=== PATIENT | female | born 1960 | race Caucasian/White ===

== ENCOUNTER 2016-12-24 14:28 | Inpatient (IN) | payer MEDICARE, OTHER ==
[~2016-12-24] VITALS: Ht 165.1 cm; Wt 88.5 kg
[~2016-12-24 14:28] MED LIST: ASPI325T8 PO; ATOR20TA58 PO; INSU100I17 SQ; INSU100I27 SQ; METF850T2 PO
[2016-12-24] MEDS ORDERED: IV NORMAL SALINE 1000ML BAG 1,000 ML IV ONE ×2 (15:30→17:45)
[2016-12-24] MEDS ORDERED: ACETAMINOPHEN 500 MG TABLET PO ONE (15:30)
--- NOTE | 2016-12-24 15:45 | PHYS DOC ---
Past Medical History Past Medical History: CVA, Diabetes-Type II, High Cholesterol, Hypertension Past Surgical History: Cholecystectomy Alcohol Use: None Drug Use: None Adult General Chief Complaint Chief Complaint: HEADACHE HPI HPI Patient is a 56 year old F who presents with with a headache that started when she woke up this morning. Patient states she went to bed last night feeling fine and woke up this morning with a headache. Patient states she just does not feel well. Patient had low-grade temp in the emergency room of 100.7 patient denies any chest pain or shortness of breath. Patient denies any nausea/vomiting /diarrhea. Patient denies any abdominal pain. Patient states she is not having history of headaches or migraines. Patient denies any vision changes. Pertinent exam findings: Cranial nerves II through XII are grossly intact without any focal neurological deficits, no meningeal signs, neck was soft with no rigidity Heart was tachycardia with no murmurs Lungs are clear to auscultation bilaterally without crackles wheeze or rales Abdomen soft nontender bowel sounds heard in all 4 quadrants ED course: Patient was seen and examined CBC, CMP, UA, lactic acid, chest x-ray, EKG, CT the head without contrast, 1 L normal saline, 1 g Tylenol were ordered 1724: Patient was updated on lab results and CT results and plan to admit for UTI with sepsis 1728: Paged Dr. Bernstein, Dr. Black is telesales consultant 1731: Discussed CC/HP/PMH with Dr. Black and recommends admit [] Pertinent results: 1501: EKG shows sinus tach rate of 116 no STEMI WBC 18 UA shows greater than 40 wbc's, positive bacteria, positive nitrates CT scan of the head is unremarkable MDM: After reviewing the chart, CC/HPI/PMH, physical exam, [lab results], [ radiological results], I believe the patient has an acute UTI with sepsis needing admission to the hospital for IV antibiotics and fluids. Review of Systems Review of Systems GEN: Denies fevers, chills, sweats HEENT: Denies blurred vision, sore throat CV: Denies chest pain RESP: Denies shortness of air, cough GI: Denies n/v/d NEURO: Headache MSK: Denies weakness, joint pain/swelling Current Medications Current Medications Current Medications Medications (Trade) Dose Ordered Sig/Antonino Start Time Stop Time Status Last Admin Dose Admin Acetaminophen (Tylenol) 1,000 mg 1X ONCE 12/24/16 15:30 12/24/16 15:31 DC 12/24/16 16:45 1,000 MG Sodium Chloride 1,000 ml @ 1,000 mls/hr 1X ONCE 12/24/16 15:30 12/24/16 16:29 DC 12/24/16 16:00 1,000 MLS/HR Allergies Allergies Allergies Coded Allergies Type Severity Reaction Last Updated Verified levofloxacin Adverse Reaction Intermediate vomiting 01/04/16 Yes Physical Exam Physical Exam GEN.: No apparent distress. Alert and oriented. HEENT: Head is normocephalic, atraumatic NECK: Supple. LUNGS: CTAB. HEART: Tachycardia without murmur, S1, S2 present. Peripheral pulses intact ABDOMEN: Soft, nontender. Positive bowel sounds. EXTREMITIES: Without any cyanosis. NEUROLOGIC: Normal speech, normal tone, cranial nerves II-12 are grossly intact without any focal neurological deficits, no meningeal signs PSYCHIATRIC: Normal affect, normal mood. SKIN: No ulcerations Current Patient Data Vital Signs Vital Signs Date Time Temp Pulse Resp B/P (MAP) Pulse Ox O2 Delivery O2 Flow Rate FiO2 12/24/16 17:04 103.2 103.2 12/24/16 14:35 121 16 169/82 (111) 95 Room Air Lab Values Laboratory Tests Test 12/24/16 15:21 12/24/16 15:50 12/24/16 16:49 Glucose (Fingerstick) 210 mg/dL (70-99) H White Blood Count 18.0 x10^3/uL (4.0-11.0) H Red Blood Count 4.54 x10^6/uL (3.50-5.40) Hemoglobin 13.5 g/dL (12.0-15.5) Hematocrit 40.0 % (36.0-47.0) Mean Corpuscular Volume 88 fL (79-100) Mean Corpuscular Hemoglobin 30 pg (25-35) Mean Corpuscular Hemoglobin Concent 34 g/dL (31-37) Red Cell Distribution Width 15.7 % (11.5-14.5) H Platelet Count 211 x10^3/uL (140-400) Neutrophils (%) (Auto) 87 % (31-73) H Lymphocytes (%) (Auto) 6 % (24-48) L Monocytes (%) (Auto) 7 % (0-9) Eosinophils (%) (Auto) 0 % (0-3) Basophils (%) (Auto) 0 % (0-3) Neutrophils # (Auto) 15.6 x10^3uL (1.8-7.7) H Lymphocytes # (Auto) 1.0 x10^3/uL (1.0-4.8) Monocytes # (Auto) 1.3 x10^3/uL (0.0-1.1) H Eosinophils # (Auto) 0.0 x10^3/uL (0.0-0.7) Basophils # (Auto) 0.1 x10^3/uL (0.0-0.2) Segmented Neutrophils % 88 % (35-66) H Lymphocytes % 6 % (24-48) L Monocytes % 6 % (0-10) Platelet Estimate Adequate (ADEQUATE) Sodium Level 137 mmol/L (136-145) Potassium Level 3.7 mmol/L (3.5-5.1) Chloride Level 101 mmol/L (98-107) Carbon Dioxide Level 27 mmol/L (21-32) Anion Gap 9 (6-14) Blood Urea Nitrogen 16 mg/dL (7-20) Creatinine 1.0 mg/dL (0.6-1.0) Estimated GFR (Cockcroft-Gault) 57.6 BUN/Creatinine Ratio 16 (6-20) Glucose Level 207 mg/dL (70-99) H Lactic Acid Level 1.7 mmol/L (0.4-2.0) Calcium Level 9.1 mg/dL (8.5-10.1) Total Bilirubin 0.7 mg/dL (0.2-1.0) Aspartate Amino Transferase (AST) 13 U/L (15-37) L Alanine Aminotransferase (ALT) 23 U/L (14-59) Alkaline Phosphatase 92 U/L (46-116) Total Protein 8.1 g/dL (6.4-8.2) Albumin 3.7 g/dL (3.4-5.0) Albumin/Globulin Ratio 0.8 (1.0-1.7) L Urine Collection Type Unknown Urine Color Yellow Urine Clarity Cloudy Urine pH 7.5 Urine Specific [place] 1.020 Urine Protein 100 mg/dL (NEG-TRACE) Urine Glucose (UA) Negative mg/dL (NEG) Urine Ketones (Stick) Negative mg/dL (NEG) Urine Blood Moderate (NEG) Urine Nitrite Positive (NEG) Urine Bilirubin Negative (NEG) Urine Urobilinogen Dipstick 1.0 mg/dL (0.2 mg/dL) Urine Leukocyte Esterase Large (NEG) Urine RBC 6-10 /HPF (0-2) Urine WBC >40 /HPF (0-4) Urine Squamous Epithelial Cells Occ /LPF Urine Bacteria Many /HPF (0-FEW) Laboratory Tests 12/24/16 15:50 Laboratory Tests 12/24/16 15:50 EKG EKG 1501: EKG shows sinus tach rate of 116 no STEMI[] Radiology/Procedures Radiology/Procedures CXR: IMPRESSION: No acute finding. Possible pulmonary nodule in the left upper lobe[] CT scan of the head NAD Course & Med Decision Making Course & Med Decision Making Pertinent Labs and Imaging studies reviewed. (See chart for details) [] Dragon Disclaimer Dragon Disclaimer This electronic medical record was generated, in whole or in part, using a voice recognition dictation system. Departure Departure Impression: Primary Impression: UTI (urinary tract infection) Additional Impression: Sepsis Disposition: ADMITTED INPATIENT Admitting Physician: Verónica Black Condition: STABLE Referrals: LUC CRONIN MD (PCP) Problem Qualifiers Primary Impression: UTI (urinary tract infection) Urinary tract infection type: acute cystitis Hematuria presence: without hematuria Qualified Codes: N30.00 - Acute cystitis without hematuria Additional Impression: Sepsis Sepsis type: sepsis due to unspecified organism Qualified Codes: A41.9 - Sepsis, unspecified organism CY FUENETS DO Dec 24, 2016 15:45
[2016-12-24 16:00] LABS: BASO # 0.1 x10^3/uL (0.0-0.2); BASO % 0 % (0-3); EOS % 0 % (0-3); HEMOGLOBIN 13.5 g/dL (12.0-15.5); LYMPH % 6 % (24-48); MEAN CORPUSCULAR HEMOGLOBIN 30 pg (25-35); MEAN CORPUSCULAR HGB CONC 34 g/dL (31-37); MEAN CORPUSCULAR VOLUME 88 fL (79-100); MONO % 7 % (0-9); NEUT % 87 % (31-73); PLATELET COUNT 211 x10^3/uL (140-400); RED BLOOD COUNT 4.54 x10^6/uL (3.50-5.40); RED CELL DISTRIBUTION WIDTH 15.7 % (11.5-14.5)
[2016-12-24 16:09] LABS: CALCIUM 9.1 mg/dL (8.5-10.1); GFR 57.6; POTASSIUM 3.7 mmol/L (3.5-5.1)
[2016-12-24 16:14] LABS: ALBUMIN 3.7 g/dL (3.4-5.0); ALBUMIN/GLOBULIN RATIO 0.8 (1.0-1.7); TOTAL BILIRUBIN 0.7 mg/dL (0.2-1.0); TOTAL PROTEIN 8.1 g/dL (6.4-8.2)
[2016-12-24 16:26] LABS: PLT ESTIMATE ADEQUATE (ADEQUATE)
--- NOTE | 2016-12-24 16:26 | RAD ---
Indication tachycardia. Arrhythmia. PA and lateral views of the chest were obtained. No prior imaging of the chest is available. The heart and pulmonary vessels appear normal. There is no gross congestive heart failure. Acute parenchymal infiltrate is not seen. There is a possible pulmonary nodule in the left upper lobe. This density may be related to the anterior aspect of the first rib. Comparison with old films or follow-up imaging is advised. There is no pleural fluid. There is no pneumothorax. IMPRESSION: No acute finding. Possible pulmonary nodule in the left upper lobe
[2016-12-24 17:04] LABS: BILIRUBIN,URINE NEGATIVE (NEG); GLUCOSE,URINE NEGATIVE (NEG); NITRITE,URINE POSITIVE (NEG); PH,URINE 7.5; PROTEIN,URINE 100 mg/dL (NEG-TRACE)
[2016-12-24 17:20] LABS: BACTERIA,URINE MANY /HPF (0-FEW); SQUAMOUS EPITHELIAL CELL,UR OCC /LPF; WBC,URINE >40 /HPF (0-4)
[2016-12-24] MEDS ORDERED: MORPHINE SULFATE 4 MG/ML DISP.SYRIN. IV PRN (17:45)
[2016-12-24] MEDS ORDERED: ONDANSETRON PF 4 MG/2 ML VIAL. IV PRN (17:45)
[2016-12-24] MEDS ORDERED: ACETAMINOPHEN 325 MG TABLET. PO PRN (17:45)
--- NOTE | 2016-12-24 17:47 | ACF ---
Admission Forms Criteria URINARY COMPLICATIONS Clinical Indications for Inpatient Care (Place 'X' for any and all applicable criteria): Ongoing inpatient care may be indicated for urinary complications with ANY ONE of the following: [X]I. Urinary tract infection requiring inpatient care as indicated by ANY ONE of the following(8)(19)(20): [ ]a) Severe symptoms (eg, high fever, severe pain) [ ]b) Vomiting or dehydration requiring ongoing inpatient care [X]c) IV antibiotic needs that cannot be managed at lower level of care [ ]d) Hemodynamic instability [ ]e) Obstruction of collecting system by stone or tumor [ ]II. Urinary retention requiring drainage or surgery (3)(4)(5)(17)(18) [ ]III. Renal failure (Use Renal Failure Criteria for further information.) [ ]IV. Oliguria(30) [ ]V. Post obstructive diuresis requiring close monitoring of urine output and intravenous compensation for excessive fluid losses(33) Extended stay beyond goal length of stay for primary condition may be needed until ALL of the following are present(3)(4)(5)(8): [ ]a) Renal function (creatinine) at baseline, or daily decreases in creatinine consistent with renal function return [ ]b) Voiding adequately or with urinary catheter or percutaneous suprapubic tube and management regimen in place that is performable at lower level of care. [ ]c) Urine output adequate [ ]d) Fever absent or resolving [ ]e) Infection absent or treatable at next level of care The original [employer] content created by [employer] has been revised. The portions of the content which have been revised are identified through the use of italic text or in bold, and [facility] has neither reviewed nor approved the modified material. All other unmodified content is copyright [employer] Please see references footnoted in the original [facility] edition 2016 Admission Criteria Met?: Yes DESTINY MATA Dec 24, 2016 17:47
--- NOTE | 2016-12-24 17:53 | RAD ---
CT of the head without contrast, 12/24/2016: HISTORY: Headache The ventricles are within normal limits in size. There is no shift of the midline structures. There is no evidence of acute intracranial hemorrhage or mass effect. There are small lucencies in the right basal ganglia compatible with old nuclear infarcts. There is also an unchanged deep white matter lucency in the left frontal region compatible with chronic ischemic change. IMPRESSION: 1. Chronic findings as described above. 2. No acute intracranial abnormality is detected. Electronically signed by: Doug Buitrago MD (12/24/2016 5:49 PM)
[2016-12-24] MEDS: IV NORMAL SALINE 1000ML BAG 1,000 ML IV SCH (19:37)
[2016-12-24] MEDS ORDERED: HYDR-2762 PO (20:05)
[2016-12-24 20:15] VITALS: BP 134/53
[2016-12-24] MEDS ORDERED: DEXTROSE 50% 25 GM / 50ML DISP.SYRIN. IV PRN (20:45)
[2016-12-24] MEDS: HYDROcodone/APAP 5/325MG 1 TAB TABLET PO PRN (21:33)
[2016-12-24] MEDS ORDERED: PNEUMOCOCCAL VAX SCREEN BY RX. MC ONE (23:15)
[2016-12-24 23:20] VITALS: BP 116/50
[2016-12-25] MEDS: IV NORMAL SALINE 1000ML BAG 1,000 ML IV SCH (01:56)
[2016-12-25 03:20] VITALS: BP 135/72
[2016-12-25 03:59] LABS: BASO # 0.1 x10^3/uL (0.0-0.2); BASO % 0 % (0-3); EOS % 0 % (0-3); HEMATOCRIT 35.2 % (36.0-47.0); HEMOGLOBIN 11.6 g/dL (12.0-15.5); LYMPH # 1.1 x10^3/uL (1.0-4.8); LYMPH % 6 % (24-48); MEAN CORPUSCULAR HEMOGLOBIN 29 pg (25-35); MEAN CORPUSCULAR HGB CONC 33 g/dL (31-37); MEAN CORPUSCULAR VOLUME 89 fL (79-100); MONO % 9 % (0-9); NEUT % 85 % (31-73); PLATELET COUNT 174 x10^3/uL (140-400); RED BLOOD COUNT 3.95 x10^6/uL (3.50-5.40); RED CELL DISTRIBUTION WIDTH 15.7 % (11.5-14.5); WHITE BLOOD COUNT 19.6 x10^3/uL (4.0-11.0)
[2016-12-25 04:49] LABS: CALCIUM 8.5 mg/dL (8.5-10.1); CREATININE 0.9 mg/dL (0.6-1.0); POTASSIUM 3.3 mmol/L (3.5-5.1)
[2016-12-25] MEDS: HYDROcodone/APAP 5/325MG 1 TAB TABLET PO PRN ×3 (06:10→20:02)
[2016-12-25 07:00] VITALS: BP 129/62
[2016-12-25] MEDS ORDERED: OMEP20TA8 PO (08:11)
[2016-12-25] MEDS ORDERED: LISI10TA2 PO (08:11)
[2016-12-25] MEDS ORDERED: LOVA20TA2 PO (08:11)
--- NOTE | 2016-12-25 08:21 | PDOC ---
PROGRESS NOTES Subjective Subjective Patient denies dysuria. Headache at admission seems better. Objective Objective Vital Signs Date Time Temp Pulse Resp B/P (MAP) Pulse Ox O2 Delivery O2 Flow Rate FiO2 12/25/16 07:51 95 Room Air 2.0 12/25/16 07:00 99.5 118 16 129/62 (84) 99.5 Intake and Output 12/25/16 07:00 Intake Total 1550 ml Output Total 300 ml Balance 1250 ml Intake Oral 500 ml IV Total 1050 ml Output Urine Total 300 ml Physical Exam Abdomen: Normal bowel sounds, Soft, No tenderness Heart: Regular rate Extremities: No edema General: Alert, Oriented X3, No acute distress Lungs: Other (BS mildly decreased throughout but otherwise CTA) Assessment Assessment Problems Medical Problems: (1) Sepsis Status: Acute (2) UTI (urinary tract infection) Status: Acute Plan Plan of Care 1. Sepsis with UTI - mild intermittent fever persists. Urine and blood cultures pending. Continue Rocephin daily. No other source of infection apparent at this time. Patient not dehydrated, no need for further IVF at this time. 2. DM2 - resume her usual insulins and Metformin, follow FSBG. 3. HTN - continue Lisinopril. 4. COPD with tobaccoism - CXR without infiltrate. Patient does not use inhalers regularly at home. Declines nicotine patch at this time. Smoking cessation advised. 5. chronic back pain - continue [place] as needed. Patient states she does not take this often at home. 6. hypokalemia - mild, replace po today. 7. hx CVA - patient denies residual deficits from this. Continue ASA daily. Comment Review of Relevant I have reviewed the following items carlos (where applicable) has been applied. Labs Laboratory Tests Test 12/24/16 15:21 12/24/16 15:50 12/24/16 16:49 12/24/16 21:21 Glucose (Fingerstick) 210 mg/dL (70-99) 210 mg/dL (70-99) White Blood Count 18.0 x10^3/uL (4.0-11.0) Red Blood Count 4.54 x10^6/uL (3.50-5.40) Hemoglobin 13.5 g/dL (12.0-15.5) Hematocrit 40.0 % (36.0-47.0) Mean Corpuscular Volume 88 fL (79-100) Mean Corpuscular Hemoglobin 30 pg (25-35) Mean Corpuscular Hemoglobin Concent 34 g/dL (31-37) Red Cell Distribution Width 15.7 % (11.5-14.5) Platelet Count 211 x10^3/uL (140-400) Neutrophils (%) (Auto) 87 % (31-73) Lymphocytes (%) (Auto) 6 % (24-48) Monocytes (%) (Auto) 7 % (0-9) Eosinophils (%) (Auto) 0 % (0-3) Basophils (%) (Auto) 0 % (0-3) Neutrophils # (Auto) 15.6 x10^3uL (1.8-7.7) Lymphocytes # (Auto) 1.0 x10^3/uL (1.0-4.8) Monocytes # (Auto) 1.3 x10^3/uL (0.0-1.1) Eosinophils # (Auto) 0.0 x10^3/uL (0.0-0.7) Basophils # (Auto) 0.1 x10^3/uL (0.0-0.2) Segmented Neutrophils % 88 % (35-66) Lymphocytes % 6 % (24-48) Monocytes % 6 % (0-10) Platelet Estimate Adequate (ADEQUATE) Sodium Level 137 mmol/L (136-145) Potassium Level 3.7 mmol/L (3.5-5.1) Chloride Level 101 mmol/L (98-107) Carbon Dioxide Level 27 mmol/L (21-32) Anion Gap 9 (6-14) Blood Urea Nitrogen 16 mg/dL (7-20) Creatinine 1.0 mg/dL (0.6-1.0) Estimated GFR (Cockcroft-Gault) 57.6 BUN/Creatinine Ratio 16 (6-20) Glucose Level 207 mg/dL (70-99) Lactic Acid Level 1.7 mmol/L (0.4-2.0) Calcium Level 9.1 mg/dL (8.5-10.1) Total Bilirubin 0.7 mg/dL (0.2-1.0) Aspartate Amino Transf (AST/SGOT) 13 U/L (15-37) Alanine Aminotransferase (ALT/SGPT) 23 U/L (14-59) Alkaline Phosphatase 92 U/L (46-116) Total Protein 8.1 g/dL (6.4-8.2) Albumin 3.7 g/dL (3.4-5.0) Albumin/Globulin Ratio 0.8 (1.0-1.7) Urine Collection Type Unknown Urine Color Yellow Urine Clarity Cloudy Urine pH 7.5 Urine Specific [place] 1.020 Urine Protein 100 mg/dL (NEG-TRACE) Urine Glucose (UA) Negative mg/dL (NEG) Urine Ketones (Stick) Negative mg/dL (NEG) Urine Blood Moderate (NEG) Urine Nitrite Positive (NEG) Urine Bilirubin Negative (NEG) Urine Urobilinogen Dipstick 1.0 mg/dL (0.2 mg/dL) Urine Leukocyte Esterase Large (NEG) Urine RBC 6-10 /HPF (0-2) Urine WBC >40 /HPF (0-4) Urine Squamous Epithelial Cells Occ /LPF Urine Bacteria Many /HPF (0-FEW) Test 12/25/16 02:55 12/25/16 07:02 White Blood Count 19.6 x10^3/uL (4.0-11.0) Red Blood Count 3.95 x10^6/uL (3.50-5.40) Hemoglobin 11.6 g/dL (12.0-15.5) Hematocrit 35.2 % (36.0-47.0) Mean Corpuscular Volume 89 fL (79-100) Mean Corpuscular Hemoglobin 29 pg (25-35) Mean Corpuscular Hemoglobin Concent 33 g/dL (31-37) Red Cell Distribution Width 15.7 % (11.5-14.5) Platelet Count 174 x10^3/uL (140-400) Neutrophils (%) (Auto) 85 % (31-73) Lymphocytes (%) (Auto) 6 % (24-48) Monocytes (%) (Auto) 9 % (0-9) Eosinophils (%) (Auto) 0 % (0-3) Basophils (%) (Auto) 0 % (0-3) Neutrophils # (Auto) 16.7 x10^3uL (1.8-7.7) Lymphocytes # (Auto) 1.1 x10^3/uL (1.0-4.8) Monocytes # (Auto) 1.7 x10^3/uL (0.0-1.1) Eosinophils # (Auto) 0.0 x10^3/uL (0.0-0.7) Basophils # (Auto) 0.1 x10^3/uL (0.0-0.2) Sodium Level 139 mmol/L (136-145) Potassium Level 3.3 mmol/L (3.5-5.1) Chloride Level 105 mmol/L (98-107) Carbon Dioxide Level 23 mmol/L (21-32) Anion Gap 11 (6-14) Blood Urea Nitrogen 12 mg/dL (7-20) Creatinine 0.9 mg/dL (0.6-1.0) Estimated GFR (Cockcroft-Gault) 65.0 Glucose Level 198 mg/dL (70-99) Calcium Level 8.5 mg/dL (8.5-10.1) Glucose (Fingerstick) 185 mg/dL (70-99) Laboratory Tests Test 12/24/16 15:21 12/24/16 15:50 12/24/16 16:49 12/24/16 21:21 Glucose (Fingerstick) 210 mg/dL (70-99) 210 mg/dL (70-99) White Blood Count 18.0 x10^3/uL (4.0-11.0) Red Blood Count 4.54 x10^6/uL (3.50-5.40) Hemoglobin 13.5 g/dL (12.0-15.5) Hematocrit 40.0 % (36.0-47.0) Mean Corpuscular Volume 88 fL (79-100) Mean Corpuscular Hemoglobin 30 pg (25-35) Mean Corpuscular Hemoglobin Concent 34 g/dL (31-37) Red Cell Distribution Width 15.7 % (11.5-14.5) Platelet Count 211 x10^3/uL (140-400) Neutrophils (%) (Auto) 87 % (31-73) Lymphocytes (%) (Auto) 6 % (24-48) Monocytes (%) (Auto) 7 % (0-9) Eosinophils (%) (Auto) 0 % (0-3) Basophils (%) (Auto) 0 % (0-3) Neutrophils # (Auto) 15.6 x10^3uL (1.8-7.7) Lymphocytes # (Auto) 1.0 x10^3/uL (1.0-4.8) Monocytes # (Auto) 1.3 x10^3/uL (0.0-1.1) Eosinophils # (Auto) 0.0 x10^3/uL (0.0-0.7) Basophils # (Auto) 0.1 x10^3/uL (0.0-0.2) Segmented Neutrophils % 88 % (35-66) Lymphocytes % 6 % (24-48) Monocytes % 6 % (0-10) Platelet Estimate Adequate (ADEQUATE) Sodium Level 137 mmol/L (136-145) Potassium Level 3.7 mmol/L (3.5-5.1) Chloride Level 101 mmol/L (98-107) Carbon Dioxide Level 27 mmol/L (21-32) Anion Gap 9 (6-14) Blood Urea Nitrogen 16 mg/dL (7-20) Creatinine 1.0 mg/dL (0.6-1.0) Estimated GFR (Cockcroft-Gault) 57.6 BUN/Creatinine Ratio 16 (6-20) Glucose Level 207 mg/dL (70-99) Lactic Acid Level 1.7 mmol/L (0.4-2.0) Calcium Level 9.1 mg/dL (8.5-10.1) Total Bilirubin 0.7 mg/dL (0.2-1.0) Aspartate Amino Transf (AST/SGOT) 13 U/L (15-37) Alanine Aminotransferase (ALT/SGPT) 23 U/L (14-59) Alkaline Phosphatase 92 U/L (46-116) Total Protein 8.1 g/dL (6.4-8.2) Albumin 3.7 g/dL (3.4-5.0) Albumin/Globulin Ratio 0.8 (1.0-1.7) Urine Collection Type Unknown Urine Color Yellow Urine Clarity Cloudy Urine pH 7.5 Urine Specific [place] 1.020 Urine Protein 100 mg/dL (NEG-TRACE) Urine Glucose (UA) Negative mg/dL (NEG) Urine Ketones (Stick) Negative mg/dL (NEG) Urine Blood Moderate (NEG) Urine Nitrite Positive (NEG) Urine Bilirubin Negative (NEG) Urine Urobilinogen Dipstick 1.0 mg/dL (0.2 mg/dL) Urine Leukocyte Esterase Large (NEG) Urine RBC 6-10 /HPF (0-2) Urine WBC >40 /HPF (0-4) Urine Squamous Epithelial Cells Occ /LPF Urine Bacteria Many /HPF (0-FEW) Test 12/25/16 02:55 12/25/16 07:02 White Blood Count 19.6 x10^3/uL (4.0-11.0) Red Blood Count 3.95 x10^6/uL (3.50-5.40) Hemoglobin 11.6 g/dL (12.0-15.5) Hematocrit 35.2 % (36.0-47.0) Mean Corpuscular Volume 89 fL (79-100) Mean Corpuscular Hemoglobin 29 pg (25-35) Mean Corpuscular Hemoglobin Concent 33 g/dL (31-37) Red Cell Distribution Width 15.7 % (11.5-14.5) Platelet Count 174 x10^3/uL (140-400) Neutrophils (%) (Auto) 85 % (31-73) Lymphocytes (%) (Auto) 6 % (24-48) Monocytes (%) (Auto) 9 % (0-9) Eosinophils (%) (Auto) 0 % (0-3) Basophils (%) (Auto) 0 % (0-3) Neutrophils # (Auto) 16.7 x10^3uL (1.8-7.7) Lymphocytes # (Auto) 1.1 x10^3/uL (1.0-4.8) Monocytes # (Auto) 1.7 x10^3/uL (0.0-1.1) Eosinophils # (Auto) 0.0 x10^3/uL (0.0-0.7) Basophils # (Auto) 0.1 x10^3/uL (0.0-0.2) Sodium Level 139 mmol/L (136-145) Potassium Level 3.3 mmol/L (3.5-5.1) Chloride Level 105 mmol/L (98-107) Carbon Dioxide Level 23 mmol/L (21-32) Anion Gap 11 (6-14) Blood Urea Nitrogen 12 mg/dL (7-20) Creatinine 0.9 mg/dL (0.6-1.0) Estimated GFR (Cockcroft-Gault) 65.0 Glucose Level 198 mg/dL (70-99) Calcium Level 8.5 mg/dL (8.5-10.1) Glucose (Fingerstick) 185 mg/dL (70-99) Medications Current Medications Acetaminophen (Tylenol) 1,000 mg 1X ONCE PO Last administered on 12/24/16 16: 45; Start 12/24/16 at 15:30; Stop 12/24/16 at 15:31; Status DC Sodium Chloride 1,000 ml @ 1,000 mls/hr 1X ONCE IV Last administered on 16:00; Start 12/24/16 at 15:30; Stop 12/24/16 at 16:29; Status DC Ceftriaxone Sodium 50 ml @ 100 mls/hr 1X ONCE IV Last administered on 18:04; Start 12/24/16 at 18:00; Stop 12/24/16 at 18:29; Status DC Sodium Chloride 1,000 ml @ 1,000 mls/hr 1X ONCE IV Last administered on 18:04; Start 12/24/16 at 17:45; Stop 12/24/16 at 18:44; Status DC Ondansetron HCl (Zofran) 4 mg PRN Q8HRS PRN IV NAUSEA/VOMITING; Start 12/24/16 at 17:45; Stop 12/25/16 at 17:44 Morphine Sulfate 4 mg PRN Q2HR PRN IV PAIN; Start 12/24/16 at 17:45; Stop 12/25 at 08:15; Status DC Sodium Chloride 1,000 ml @ 125 mls/hr Q8H IV Last administered on 12/25/16 01 :56; Start 12/24/16 at 17:35; Stop 12/25/16 at 08:15; Status DC Acetaminophen (Tylenol) 650 mg PRN Q4HRS PRN PO FEVER; Start 12/24/16 at 17:45 ; Stop 12/25/16 at 17:44 Acetaminophen/ Hydrocodone Bitart (Lortab 5/325) 1 tab PRN Q6HRS PRN PO PAIN Last administered on 12/25/16 06:10; Start 12/24/16 at 20:45 Insulin Aspart (NovoLOG) 0-5 UNITS TIDWMEALS SQ ; Start 12/25/16 at 08:00 Dextrose (Dextrose 50%-Water Syringe) 12.5 gm PRN Q15MIN PRN IV SEE COMMENTS; Start 12/24/16 at 20:45 Pneumococcal Polyvalent Vaccine (Do NOT chart on this placeholder) 1 each 1X ONCE MC ; Start 12/24/16 at 23:15; Stop 12/24/16 at 23:16; Status UNV Pneumococcal Polyvalent Vaccine (Pneumovax 23) 0.5 ml ONCE ONCE VAX IM ; Start 12/25/16 at 09:00; Stop 12/25/16 at 09:01 Aspirin (Dexter Aspirin) 325 mg DAILYWBKFT PO ; Start 12/25/16 at 09:00 Insulin Aspart (NovoLOG) 12 units TIDAC SQ ; Start 12/25/16 at 09:00 Insulin Detemir (Levemir) 40 units QHS SQ ; Start 12/25/16 at 21:00 Lisinopril (Prinivil) 10 mg DAILY PO ; Start 12/25/16 at 09:00 Non-Formulary Medication 1 tab DAILY PO ; Start 12/25/16 at 09:00; Status UNV Pantoprazole Sodium (Protonix) 40 mg DAILYAC PO ; Start 12/25/16 at 09:00 Potassium Chloride (Klor-Con) 20 meq 1X ONCE PO ; Start 12/25/16 at 08:15; Stop 12/25/16 at 08:16; Status UNV Active Scripts Active Omeprazole 20 Mg Tablet.dr 1 Tab PO DAILY Lisinopril 10 Mg Tablet 1 Tab PO DAILY Lovastatin 20 Mg Tablet 1 Tab PO DAILY Novolog Flexpen (Insulin Aspart) 100 Unit/1 Ml Insuln.pen 12 Units SQ TIDAC 30 Days Aspirin 325 Mg Tablet 325 Mg PO DAILYWBKFT Metformin Hcl 850 Mg Tablet 1 Tab PO BID Levemir Flextouch (Insulin Detemir) 100 Unit/1 Ml Insuln.pen 40 Units SQ QHS 30 Days Reported Hydrocodone-Apap 7.5-325 (Hydrocodone Bit/Acetaminophen) 1 Each Tablet 1 Tab PO PRN Q6HRS PRN Vitals/I & O Vital Sign - Last 24 Hours 12/24/16 12/24/16 12/24/16 12/24/16 14:35 15:30 17:04 18:00 Temp 100.7 103.2 100.7 103.2 Pulse 121 120 114 Resp 16 B/P (MAP) 169/82 (111) 153/73 (99) 126/62 (83) Pulse Ox 95 92 95 O2 Delivery Room Air Nasal Cannula Nasal Cannula O2 Flow Rate 2.0 2.0 12/24/16 12/24/16 12/24/16 12/24/16 18:48 20:00 20:15 23:20 Temp 100.6 99.2 100.7 100.6 99.2 100.7 Pulse 103 113 Resp 16 16 B/P (MAP) 134/53 (80) 116/50 (72) Pulse Ox 98 94 O2 Delivery Room Air Room Air Room Air 12/25/16 12/25/16 12/25/16 03:20 07:00 07:51 Temp 101.4 99.5 101.4 99.5 Pulse 127 118 Resp 18 16 B/P (MAP) 135/72 (93) 129/62 (84) Pulse Ox 95 93 95 O2 Delivery Nasal Cannula Nasal Cannula Room Air O2 Flow Rate 2.0 2.0 2.0 Intake and Output 12/24/16 12/24/16 12/25/16 15:00 23:00 07:00 Intake Total 1050 ml 500 ml Output Total 300 ml Balance 1050 ml 200 ml JUDY ARAYA MD Dec 25, 2016 08:21
[2016-12-25] MEDS: LISINOPRIL 10 MG TABLET PO SCH (08:50)
[2016-12-25] MEDS: PANTOPRAZOLE 40 MG TABLET.DR. PO SCH (08:50)
[2016-12-25] MEDS: ASPIRIN 325 MG TABLET PO SCH (08:50)
[2016-12-25] MEDS ORDERED: POTASSIUM CHLORIDE 20 MEQ TABLET.ER. PO ONE (09:00)
[2016-12-25] MEDS: INSULIN ASPART 300 UNITS/3 ML INSULN.PEN SQ SCH ×6 (09:00→17:00)
[2016-12-25] MEDS ORDERED: PNEUMOC CONJ VACC 23-VALENT 0.5 ML VIAL. VAX IM ONE (09:00)
--- NOTE | 2016-12-25 09:37 | HP ---
ADMIT DATE: CHIEF COMPLAINT: Headache and malaise. HISTORY OF PRESENT ILLNESS: The patient is a 56-year-old insulin-dependent diabetic, who presented to the Emergency Room with the above complaint. She reported the onset of a headache earlier on the day of admission. She felt discomfort all across her forehead and in the back of her neck. She also had some malaise and just did not feel right. In the Emergency Room she was found to be febrile and mildly tachycardic. Urine specimen showed greater than 40 wbc's and the patient was admitted for further treatment. PAST MEDICAL HISTORY: Diabetes mellitus type 2, insulin-dependent; hypertension; COPD with ongoing tobaccoism; chronic back pain; history of CVA and hyperlipidemia. PAST SURGICAL HISTORY: Cholecystectomy. ALLERGIES: THE PATIENT IS ALLERGIC TO LEVOFLOXACIN. HOME MEDICATIONS: Aspirin 325 mg daily, Levemir 40 units at bedtime, NovoLog 12 units with meals. The patient reports she has not taken either of her insulins for over a month as she did not have test strips and her insurance would not pay for the brand that she was presently using. Lisinopril 10 mg daily, lovastatin 20 mg daily, metformin 850 mg b.i.d. and Prilosec 20 mg daily. FAMILY HISTORY: Noncontributory. SOCIAL HISTORY: The patient is . She is disabled. She continues to smoke cigarettes daily. REVIEW OF SYSTEMS: The patient was not aware that she had a fever. She has not had chills. She has a chronic cough, which is productive of clear or white sputum in the morning and this has not changed recently. She denies worsening cough. She denies wheezing or shortness of air. She had been prescribed a Breo inhaler when she saw Dr. Bernstein in the office last year, but reports she has only been using as intermittently and does not take any other inhalers regularly. The patient denies chest pain or palpitations. She denies abdominal pain, nausea or vomiting. She has some chronic back pain, which has been stable with hydrocodone. She reports she does not take this very often at home. She denies any residual deficits from 2 previous strokes that she has had. PHYSICAL EXAMINATION: GENERAL: The patient is alert and oriented x 3, resting comfortably in bed, in no acute distress. HEENT: PERRL, EOMI, sclerae clear. Oropharynx: Mucous membranes moist. NECK: Supple, without lymphadenopathy. CHEST: Breath sounds mildly decreased throughout, but otherwise clear to auscultation. CARDIOVASCULAR: Regular rhythm without murmur. ABDOMEN: Soft, nontender, normoactive bowel sounds are present. EXTREMITIES: Without edema. ASSESSMENT AND PLAN: 1. Sepsis with urinary tract infection. The patient has been started on Rocephin. Blood and urine cultures are pending. She received IV fluids at admission, but does not appear dehydrated, so these will be discontinued and she is advised to increase her oral fluid. 2. Diabetes mellitus type 2. We will resume her usual insulins and continue metformin and follow her fingersticks. 3. Hypertension. Continue lisinopril. 4. Chronic obstructive pulmonary disease with ongoing tobaccoism. The patient's chest x-ray was without acute infiltrate. She declines the use of a nicotine patch at this time. Smoking cessation is advised. 5. Chronic back pain. Continue hydrocodone as needed. 6. History of cerebrovascular accident. The patient denies residual deficits from this. We will continue aspirin daily. She is aware of the increased risk of cerebrovascular accident with her continuing to smoke. 7. Hypokalemia. This is mild and is probably due to the IV fluids overnight. We will replace this orally. She was not hypokalemic at admission. JUDY ARAYA MD DR: ANTHONY/brenda JOB#: [id number] / [id number] SEEMA
[2016-12-25 11:00] VITALS: BP 118/48
[2016-12-25 15:00] VITALS: BP 90/46
[2016-12-25 19:54] VITALS: BP 129/68
[2016-12-25] MEDS: ATORVASTATIN CALCIUM 10 MG TABLET. PO SCH (20:01)
[2016-12-25] MEDS: INSULIN DETEMIR 300 UNITS/3 ML INSULN.PEN. SQ SCH (21:09)
[2016-12-25 23:44] VITALS: BP 108/54
[2016-12-26 03:10] VITALS: BP 133/60
[2016-12-26 04:52] LABS: HEMOGLOBIN 10.6 g/dL (12.0-15.5); RED BLOOD COUNT 3.57 x10^6/uL (3.50-5.40); RED CELL DISTRIBUTION WIDTH 15.9 % (11.5-14.5); WHITE BLOOD COUNT 11.6 x10^3/uL (4.0-11.0)
[2016-12-26 05:09] LABS: CALCIUM 8.5 mg/dL (8.5-10.1); CREATININE 0.9 mg/dL (0.6-1.0); POTASSIUM 3.7 mmol/L (3.5-5.1)
[2016-12-26 07:00] VITALS: BP 138/73
[2016-12-26] MEDS: INSULIN ASPART 300 UNITS/3 ML INSULN.PEN SQ SCH ×6 (08:00→17:47)
[2016-12-26] MEDS: PANTOPRAZOLE 40 MG TABLET.DR. PO SCH (08:18)
[2016-12-26] MEDS: ASPIRIN 325 MG TABLET PO SCH (08:18)
[2016-12-26] MEDS: HYDROcodone/APAP 5/325MG 1 TAB TABLET PO PRN ×2 (08:18→21:49)
[2016-12-26] MEDS: LISINOPRIL 10 MG TABLET PO SCH (08:19)
--- NOTE | 2016-12-26 09:11 | PDOC ---
PROGRESS NOTES Subjective Subjective Patient reports feeling some better. Objective Objective Vital Signs Date Time Temp Pulse Resp B/P (MAP) Pulse Ox O2 Delivery O2 Flow Rate FiO2 12/26/16 08:19 93 138/73 12/26/16 08:18 93 Room Air 2.0 12/26/16 07:00 100.5 16 100.5 Intake and Output 12/26/16 06:59 Intake Total 1310 ml Output Total 2200 ml Balance -890 ml Intake Oral 1260 ml IV Total 50 ml Output Urine Total 2200 ml Physical Exam Abdomen: Normal bowel sounds, Soft, No tenderness Heart: Regular rate Extremities: No edema General: Alert, Oriented X3, No acute distress Lungs: Other (BS decreased throughout but otherwise CTA) Assessment Assessment Problems Medical Problems: (1) Sepsis Status: Acute (2) UTI (urinary tract infection) Status: Acute Plan Plan of Care 1. Sepsis with UTI - preliminary blood culture positive for gram neg rods. Fevers are improving and white count is down. Continue Rocephin, await culture reports. 2. DM2 - well controlled with insulins, continue. 3. HTN - controlled, continue home meds. 4. COPD - stable, no hypoxia, patient does not feel the need for nicotine patch presently. Comment Review of Relevant I have reviewed the following items carlos (where applicable) has been applied. Labs Laboratory Tests Test 12/24/16 15:21 12/24/16 15:50 12/24/16 16:49 12/24/16 21:21 Glucose (Fingerstick) 210 mg/dL (70-99) 210 mg/dL (70-99) White Blood Count 18.0 x10^3/uL (4.0-11.0) Red Blood Count 4.54 x10^6/uL (3.50-5.40) Hemoglobin 13.5 g/dL (12.0-15.5) Hematocrit 40.0 % (36.0-47.0) Mean Corpuscular Volume 88 fL (79-100) Mean Corpuscular Hemoglobin 30 pg (25-35) Mean Corpuscular Hemoglobin Concent 34 g/dL (31-37) Red Cell Distribution Width 15.7 % (11.5-14.5) Platelet Count 211 x10^3/uL (140-400) Neutrophils (%) (Auto) 87 % (31-73) Lymphocytes (%) (Auto) 6 % (24-48) Monocytes (%) (Auto) 7 % (0-9) Eosinophils (%) (Auto) 0 % (0-3) Basophils (%) (Auto) 0 % (0-3) Neutrophils # (Auto) 15.6 x10^3uL (1.8-7.7) Lymphocytes # (Auto) 1.0 x10^3/uL (1.0-4.8) Monocytes # (Auto) 1.3 x10^3/uL (0.0-1.1) Eosinophils # (Auto) 0.0 x10^3/uL (0.0-0.7) Basophils # (Auto) 0.1 x10^3/uL (0.0-0.2) Segmented Neutrophils % 88 % (35-66) Lymphocytes % 6 % (24-48) Monocytes % 6 % (0-10) Platelet Estimate Adequate (ADEQUATE) Sodium Level 137 mmol/L (136-145) Potassium Level 3.7 mmol/L (3.5-5.1) Chloride Level 101 mmol/L (98-107) Carbon Dioxide Level 27 mmol/L (21-32) Anion Gap 9 (6-14) Blood Urea Nitrogen 16 mg/dL (7-20) Creatinine 1.0 mg/dL (0.6-1.0) Estimated GFR (Cockcroft-Gault) 57.6 BUN/Creatinine Ratio 16 (6-20) Glucose Level 207 mg/dL (70-99) Lactic Acid Level 1.7 mmol/L (0.4-2.0) Calcium Level 9.1 mg/dL (8.5-10.1) Total Bilirubin 0.7 mg/dL (0.2-1.0) Aspartate Amino Transf (AST/SGOT) 13 U/L (15-37) Alanine Aminotransferase (ALT/SGPT) 23 U/L (14-59) Alkaline Phosphatase 92 U/L (46-116) Total Protein 8.1 g/dL (6.4-8.2) Albumin 3.7 g/dL (3.4-5.0) Albumin/Globulin Ratio 0.8 (1.0-1.7) Urine Collection Type Unknown Urine Color Yellow Urine Clarity Cloudy Urine pH 7.5 Urine Specific Fajardo 1.020 Urine Protein 100 mg/dL (NEG-TRACE) Urine Glucose (UA) Negative mg/dL (NEG) Urine Ketones (Stick) Negative mg/dL (NEG) Urine Blood Moderate (NEG) Urine Nitrite Positive (NEG) Urine Bilirubin Negative (NEG) Urine Urobilinogen Dipstick 1.0 mg/dL (0.2 mg/dL) Urine Leukocyte Esterase Large (NEG) Urine RBC 6-10 /HPF (0-2) Urine WBC >40 /HPF (0-4) Urine Squamous Epithelial Cells Occ /LPF Urine Bacteria Many /HPF (0-FEW) Test 12/25/16 02:55 12/25/16 07:02 12/25/16 11:59 12/25/16 16:59 White Blood Count 19.6 x10^3/uL (4.0-11.0) Red Blood Count 3.95 x10^6/uL (3.50-5.40) Hemoglobin 11.6 g/dL (12.0-15.5) Hematocrit 35.2 % (36.0-47.0) Mean Corpuscular Volume 89 fL (79-100) Mean Corpuscular Hemoglobin 29 pg (25-35) Mean Corpuscular Hemoglobin Concent 33 g/dL (31-37) Red Cell Distribution Width 15.7 % (11.5-14.5) Platelet Count 174 x10^3/uL (140-400) Neutrophils (%) (Auto) 85 % (31-73) Lymphocytes (%) (Auto) 6 % (24-48) Monocytes (%) (Auto) 9 % (0-9) Eosinophils (%) (Auto) 0 % (0-3) Basophils (%) (Auto) 0 % (0-3) Neutrophils # (Auto) 16.7 x10^3uL (1.8-7.7) Lymphocytes # (Auto) 1.1 x10^3/uL (1.0-4.8) Monocytes # (Auto) 1.7 x10^3/uL (0.0-1.1) Eosinophils # (Auto) 0.0 x10^3/uL (0.0-0.7) Basophils # (Auto) 0.1 x10^3/uL (0.0-0.2) Sodium Level 139 mmol/L (136-145) Potassium Level 3.3 mmol/L (3.5-5.1) Chloride Level 105 mmol/L (98-107) Carbon Dioxide Level 23 mmol/L (21-32) Anion Gap 11 (6-14) Blood Urea Nitrogen 12 mg/dL (7-20) Creatinine 0.9 mg/dL (0.6-1.0) Estimated GFR (Cockcroft-Gault) 65.0 Glucose Level 198 mg/dL (70-99) Calcium Level 8.5 mg/dL (8.5-10.1) Glucose (Fingerstick) 185 mg/dL (70-99) 143 mg/dL (70-99) 120 mg/dL (70-99) Test 12/25/16 20:53 12/26/16 03:30 Glucose (Fingerstick) 217 mg/dL (70-99) White Blood Count 11.6 x10^3/uL (4.0-11.0) Red Blood Count 3.57 x10^6/uL (3.50-5.40) Hemoglobin 10.6 g/dL (12.0-15.5) Hematocrit 32.0 % (36.0-47.0) Mean Corpuscular Volume 90 fL (79-100) Mean Corpuscular Hemoglobin 30 pg (25-35) Mean Corpuscular Hemoglobin Concent 33 g/dL (31-37) Red Cell Distribution Width 15.9 % (11.5-14.5) Platelet Count 147 x10^3/uL (140-400) Sodium Level 141 mmol/L (136-145) Potassium Level 3.7 mmol/L (3.5-5.1) Chloride Level 107 mmol/L (98-107) Carbon Dioxide Level 26 mmol/L (21-32) Anion Gap 8 (6-14) Blood Urea Nitrogen 11 mg/dL (7-20) Creatinine 0.9 mg/dL (0.6-1.0) Estimated GFR (Cockcroft-Gault) 65.0 Glucose Level 113 mg/dL (70-99) Calcium Level 8.5 mg/dL (8.5-10.1) Laboratory Tests Test 12/25/16 11:59 12/25/16 16:59 12/25/16 20:53 12/26/16 03:30 Glucose (Fingerstick) 143 mg/dL (70-99) 120 mg/dL (70-99) 217 mg/dL (70-99) White Blood Count 11.6 x10^3/uL (4.0-11.0) Red Blood Count 3.57 x10^6/uL (3.50-5.40) Hemoglobin 10.6 g/dL (12.0-15.5) Hematocrit 32.0 % (36.0-47.0) Mean Corpuscular Volume 90 fL (79-100) Mean Corpuscular Hemoglobin 30 pg (25-35) Mean Corpuscular Hemoglobin Concent 33 g/dL (31-37) Red Cell Distribution Width 15.9 % (11.5-14.5) Platelet Count 147 x10^3/uL (140-400) Sodium Level 141 mmol/L (136-145) Potassium Level 3.7 mmol/L (3.5-5.1) Chloride Level 107 mmol/L (98-107) Carbon Dioxide Level 26 mmol/L (21-32) Anion Gap 8 (6-14) Blood Urea Nitrogen 11 mg/dL (7-20) Creatinine 0.9 mg/dL (0.6-1.0) Estimated GFR (Cockcroft-Gault) 65.0 Glucose Level 113 mg/dL (70-99) Calcium Level 8.5 mg/dL (8.5-10.1) Microbiology 12/24/16 Blood Culture - Final, Complete Medications Current Medications Acetaminophen (Tylenol) 1,000 mg 1X ONCE PO Last administered on 12/24/16 16: 45; Start 12/24/16 at 15:30; Stop 12/24/16 at 15:31; Status DC Sodium Chloride 1,000 ml @ 1,000 mls/hr 1X ONCE IV Last administered on 16:00; Start 12/24/16 at 15:30; Stop 12/24/16 at 16:29; Status DC Ceftriaxone Sodium 50 ml @ 100 mls/hr 1X ONCE IV Last administered on 18:04; Start 12/24/16 at 18:00; Stop 12/24/16 at 18:29; Status DC Sodium Chloride 1,000 ml @ 1,000 mls/hr 1X ONCE IV Last administered on 18:04; Start 12/24/16 at 17:45; Stop 12/24/16 at 18:44; Status DC Ondansetron HCl (Zofran) 4 mg PRN Q8HRS PRN IV NAUSEA/VOMITING; Start 12/24/16 at 17:45; Stop 12/25/16 at 17:44; Status DC Morphine Sulfate 4 mg PRN Q2HR PRN IV PAIN; Start 12/24/16 at 17:45; Stop 12/25 at 08:15; Status DC Sodium Chloride 1,000 ml @ 125 mls/hr Q8H IV Last administered on 12/25/16 01 :56; Start 12/24/16 at 17:35; Stop 12/25/16 at 08:15; Status DC Acetaminophen (Tylenol) 650 mg PRN Q4HRS PRN PO FEVER; Start 12/24/16 at 17:45 ; Stop 12/25/16 at 17:44; Status DC Acetaminophen/ Hydrocodone Bitart (Lortab 5/325) 1 tab PRN Q6HRS PRN PO PAIN Last administered on 12/26/16 08:18; Start 12/24/16 at 20:45 Insulin Aspart (NovoLOG) 0-5 UNITS TIDWMEALS SQ Last administered on 12/25/16 09:00; Start 12/25/16 at 08:00 Dextrose (Dextrose 50%-Water Syringe) 12.5 gm PRN Q15MIN PRN IV SEE COMMENTS; Start 12/24/16 at 20:45 Pneumococcal Polyvalent Vaccine (Do NOT chart on this placeholder) 1 each 1X ONCE MC ; Start 12/24/16 at 23:15; Stop 12/24/16 at 23:16; Status UNV Pneumococcal Polyvalent Vaccine (Pneumovax 23) 0.5 ml ONCE ONCE VAX IM Last administered on 12/25/16 08:52; Start 12/25/16 at 09:00; Stop 12/25/16 at 09:01 ; Status DC Aspirin (Dexter Aspirin) 325 mg DAILYWBKFT PO Last administered on 12/26/16 08: 18; Start 12/25/16 at 09:00 Insulin Aspart (NovoLOG) 12 units TIDAC SQ Last administered on 12/26/16 08:26 ; Start 12/25/16 at 09:00 Insulin Detemir (Levemir) 40 units QHS SQ Last administered on 12/25/16 21:09 ; Start 12/25/16 at 21:00 Lisinopril (Prinivil) 10 mg DAILY PO Last administered on 12/26/16 08:19; Start 12/25/16 at 09:00 Atorvastatin Calcium (Lipitor) 5 mg QHS PO Last administered on 12/25/16 20:01 ; Start 12/25/16 at 21:00 Pantoprazole Sodium (Protonix) 40 mg DAILYAC PO Last administered on 12/26/16 08:18; Start 12/25/16 at 09:00 Potassium Chloride (Klor-Con) 20 meq 1X ONCE PO Last administered on 08:50; Start 12/25/16 at 09:00; Stop 12/25/16 at 09:01; Status DC Ceftriaxone Sodium 1 gm/ Sodium Chloride 50 ml @ 100 mls/hr Q24H IV Last administered on 12/25/16 19:02; Start 12/25/16 at 18:00 Active Scripts Active Omeprazole 20 Mg Tablet.dr 1 Tab PO DAILY Lisinopril 10 Mg Tablet 1 Tab PO DAILY Lovastatin 20 Mg Tablet 1 Tab PO DAILY Novolog Flexpen (Insulin Aspart) 100 Unit/1 Ml Insuln.pen 12 Units SQ TIDAC 30 Days Aspirin 325 Mg Tablet 325 Mg PO DAILYWBKFT Metformin Hcl 850 Mg Tablet 1 Tab PO BID Levemir Flextouch (Insulin Detemir) 100 Unit/1 Ml Insuln.pen 40 Units SQ QHS 30 Days Reported Hydrocodone-Apap 7.5-325 (Hydrocodone Bit/Acetaminophen) 1 Each Tablet 1 Tab PO PRN Q6HRS PRN Vitals/I & O Vital Sign - Last 24 Hours 12/25/16 12/25/16 12/25/16 12/25/16 11:00 12:45 14:49 15:00 Temp 100.0 99.3 100.0 99.3 Pulse 109 102 Resp 20 18 B/P (MAP) 118/48 (71) 90/46 (61) Pulse Ox 95 95 95 95 O2 Delivery Room Air Room Air Room Air Room Air O2 Flow Rate 2.0 2.0 6/12/17 6/12/17 6/12/17 6/13/17 19:54 20:23 23:44 03:10 Temp 100.4 98.9 100.6 100.4 98.9 100.6 Pulse 109 91 105 Resp 16 16 20 B/P (MAP) 129/68 (88) 108/54 (72) 133/60 (84) Pulse Ox 92 92 95 O2 Delivery Room Air Room Air Nasal Cannula Room Air O2 Flow Rate 2.0 12/26/16 12/26/16 12/26/16 12/26/16 07:00 08:00 08:18 08:19 Temp 100.5 100.5 Pulse 93 93 Resp 16 B/P (MAP) 138/73 (94) 138/73 Pulse Ox 93 93 O2 Delivery Room Air Room Air Room Air O2 Flow Rate 2.0 Intake and Output 12/25/16 12/25/16 12/26/16 14:59 22:59 06:59 Intake Total 850 ml 460 ml Output Total 600 ml 1600 ml Balance 250 ml -1140 ml JUDY ARAYA MD Dec 26, 2016 09:11
[2016-12-26 10:50] VITALS: BP 116/69
[2016-12-26] MEDS ORDERED: IBUPROFEN 400 MG TABLET. PO PRN (13:00)
[2016-12-26 15:00] VITALS: BP 120/45
[2016-12-26 19:51] VITALS: BP 143/71
[2016-12-26] MEDS: ATORVASTATIN CALCIUM 10 MG TABLET. PO SCH (21:49)
[2016-12-26] MEDS: INSULIN DETEMIR 300 UNITS/3 ML INSULN.PEN. SQ SCH (21:54)
[2016-12-26 23:38] VITALS: BP 119/71
[2016-12-27 03:07] VITALS: BP 134/64
[2016-12-27] MEDS: INSULIN ASPART 300 UNITS/3 ML INSULN.PEN SQ SCH ×4 (07:30→12:40)
[2016-12-27 07:42] VITALS: BP 152/74
[2016-12-27] MEDS: ASPIRIN 325 MG TABLET PO SCH (08:13)
[2016-12-27] MEDS: PANTOPRAZOLE 40 MG TABLET.DR. PO SCH (08:13)
[2016-12-27] MEDS: LISINOPRIL 10 MG TABLET PO SCH (08:13)
[2016-12-27] MEDS: HYDROcodone/APAP 5/325MG 1 TAB TABLET PO PRN (08:14)
--- NOTE | 2016-12-27 09:12 | PDOC ---
PROGRESS NOTES Subjective Subjective Patient without complaint, wants to go home. Objective Objective Vital Signs Date Time Temp Pulse Resp B/P (MAP) Pulse Ox O2 Delivery O2 Flow Rate FiO2 12/27/16 08:14 91 Room Air 12/27/16 08:13 83 134/64 12/27/16 07:42 99.3 18 99.3 12/26/16 12:08 2.0 Intake and Output 12/27/16 07:00 Intake Total 1560 ml Output Total 3250 ml Balance -1690 ml Intake Oral 1560 ml Output Urine Total 3250 ml Physical Exam Abdomen: Normal bowel sounds, Soft, No tenderness Heart: Regular rate Extremities: No edema General: Alert, Oriented X3, No acute distress Lungs: Clear to auscultation Assessment Assessment Problems Medical Problems: (1) Sepsis Status: Acute (2) UTI (urinary tract infection) Status: Acute Plan Plan of Care 1. Sepsis with UTI - no fevers in over 24 hours. Waiting for C&S reports, can discharge home later today on po abx after reviewing sensitivities. Continue Rocephin for now. 2. DM2 - well controlled with insulins. Patient strongly advised to obtain new glucose meter and test supplies covered by her insurance, scrip left on chart for this. Closer follow up in our office advised. 3. HTN - controlled, continue home meds. 4. COPD - stable, no hypoxia. Patient aware of advice to work on smoking cessation. Comment Review of Relevant I have reviewed the following items carlos (where applicable) has been applied. Labs Laboratory Tests Test 12/25/16 11:59 12/25/16 16:59 12/25/16 20:53 12/26/16 03:30 Glucose (Fingerstick) 143 mg/dL (70-99) 120 mg/dL (70-99) 217 mg/dL (70-99) White Blood Count 11.6 x10^3/uL (4.0-11.0) Red Blood Count 3.57 x10^6/uL (3.50-5.40) Hemoglobin 10.6 g/dL (12.0-15.5) Hematocrit 32.0 % (36.0-47.0) Mean Corpuscular Volume 90 fL (79-100) Mean Corpuscular Hemoglobin 30 pg (25-35) Mean Corpuscular Hemoglobin Concent 33 g/dL (31-37) Red Cell Distribution Width 15.9 % (11.5-14.5) Platelet Count 147 x10^3/uL (140-400) Sodium Level 141 mmol/L (136-145) Potassium Level 3.7 mmol/L (3.5-5.1) Chloride Level 107 mmol/L (98-107) Carbon Dioxide Level 26 mmol/L (21-32) Anion Gap 8 (6-14) Blood Urea Nitrogen 11 mg/dL (7-20) Creatinine 0.9 mg/dL (0.6-1.0) Estimated GFR (Cockcroft-Gault) 65.0 Glucose Level 113 mg/dL (70-99) Calcium Level 8.5 mg/dL (8.5-10.1) Test 12/26/16 07:12 12/26/16 11:59 12/26/16 17:30 12/26/16 21:00 Glucose (Fingerstick) 99 mg/dL (70-99) 139 mg/dL (70-99) 113 mg/dL (70-99) 152 mg/dL (70-99) Test 12/27/16 04:19 12/27/16 04:45 12/27/16 07:46 Glucose (Fingerstick) 62 mg/dL (70-99) 98 mg/dL (70-99) 75 mg/dL (70-99) Laboratory Tests Test 12/26/16 11:59 12/26/16 17:30 12/26/16 21:00 12/27/16 04:19 Glucose (Fingerstick) 139 mg/dL (70-99) 113 mg/dL (70-99) 152 mg/dL (70-99) 62 mg/dL (70-99) Test 12/27/16 04:45 12/27/16 07:46 Glucose (Fingerstick) 98 mg/dL (70-99) 75 mg/dL (70-99) Microbiology 12/24/16 Blood Culture - Preliminary, Resulted 12/24/16 Blood Culture Result 1 (SHANTEL) - Preliminary, Resulted 12/24/16 Urine Culture - Preliminary, Resulted 12/24/16 Urine Culture Result 1 (SHANTEL) - Preliminary, Resulted Medications Current Medications Acetaminophen (Tylenol) 1,000 mg 1X ONCE PO Last administered on 12/24/16t 16: 45; Start 12/24/16 at 15:30; Stop 12/24/16 at 15:31; Status DC Sodium Chloride 1,000 ml @ 1,000 mls/hr 1X ONCE IV Last administered on 16:00; Start 12/24/16 at 15:30; Stop 12/24/16 at 16:29; Status DC Ceftriaxone Sodium 50 ml @ 100 mls/hr 1X ONCE IV Last administered on 18:04; Start 12/24/16 at 18:00; Stop 12/24/16 at 18:29; Status DC Sodium Chloride 1,000 ml @ 1,000 mls/hr 1X ONCE IV Last administered on 18:04; Start 12/24/16 at 17:45; Stop 12/24/16 at 18:44; Status DC Ondansetron HCl (Zofran) 4 mg PRN Q8HRS PRN IV NAUSEA/VOMITING; Start 12/24/16 at 17:45; Stop 12/25/16 at 17:44; Status DC Morphine Sulfate 4 mg PRN Q2HR PRN IV PAIN; Start 12/24/16 at 17:45; Stop 12/25 at 08:15; Status DC Sodium Chloride 1,000 ml @ 125 mls/hr Q8H IV Last administered on 12/25/16 01 :56; Start 12/24/16 at 17:35; Stop 12/25/16 at 08:15; Status DC Acetaminophen (Tylenol) 650 mg PRN Q4HRS PRN PO FEVER; Start 12/24/16 at 17:45 ; Stop 12/25/16 at 17:44; Status DC Acetaminophen/ Hydrocodone Bitart (Lortab 5/325) 1 tab PRN Q6HRS PRN PO PAIN Last administered on 12/27/16 08:14; Start 12/24/16 at 20:45 Insulin Aspart (NovoLOG) 0-5 UNITS TIDWMEALS SQ Last administered on 12/25/16 09:00; Start 12/25/16 at 08:00 Dextrose (Dextrose 50%-Water Syringe) 12.5 gm PRN Q15MIN PRN IV SEE COMMENTS; Start 12/24/16 at 20:45 Pneumococcal Polyvalent Vaccine (Do NOT chart on this placeholder) 1 each 1X ONCE MC ; Start 12/24/16 at 23:15; Stop 12/24/16 at 23:16; Status UNV Pneumococcal Polyvalent Vaccine (Pneumovax 23) 0.5 ml ONCE ONCE VAX IM Last administered on 12/25/16 08:52; Start 12/25/16 at 09:00; Stop 12/25/16 at 09:01 ; Status DC Aspirin (Dexter Aspirin) 325 mg DAILYWBKFT PO Last administered on 12/27/16 08: 13; Start 12/25/16 at 09:00 Insulin Aspart (NovoLOG) 12 units TIDAC SQ Last administered on 12/26/16 17:47 ; Start 12/25/16 at 09:00 Insulin Detemir (Levemir) 40 units QHS SQ Last administered on 12/26/16 21:54 ; Start 12/25/16 at 21:00 Lisinopril (Prinivil) 10 mg DAILY PO Last administered on 12/27/16 08:13; Start 12/25/16 at 09:00 Atorvastatin Calcium (Lipitor) 5 mg QHS PO Last administered on 12/26/16 21:49 ; Start 12/25/16 at 21:00 Pantoprazole Sodium (Protonix) 40 mg DAILYAC PO Last administered on 12/27/16 08:13; Start 12/25/16 at 09:00 Potassium Chloride (Klor-Con) 20 meq 1X ONCE PO Last administered on 08:50; Start 12/25/16 at 09:00; Stop 12/25/16 at 09:01; Status DC Ceftriaxone Sodium 1 gm/ Sodium Chloride 50 ml @ 100 mls/hr Q24H IV Last administered on 12/26/16 22:41; Start 12/25/16 at 18:00 Ibuprofen (Motrin) 400 mg PRN Q6HRS PRN PO INFLAMMATION Last administered on 17:41; Start 12/26/16 at 13:00 Active Scripts Active Omeprazole 20 Mg Tablet.dr 1 Tab PO DAILY Lisinopril 10 Mg Tablet 1 Tab PO DAILY Lovastatin 20 Mg Tablet 1 Tab PO DAILY Novolog Flexpen (Insulin Aspart) 100 Unit/1 Ml Insuln.pen 12 Units SQ TIDAC 30 Days Aspirin 325 Mg Tablet 325 Mg PO DAILYWBKFT Metformin Hcl 850 Mg Tablet 1 Tab PO BID Levemir Flextouch (Insulin Detemir) 100 Unit/1 Ml Insuln.pen 40 Units SQ QHS 30 Days Reported Hydrocodone-Apap 7.5-325 (Hydrocodone Bit/Acetaminophen) 1 Each Tablet 1 Tab PO PRN Q6HRS PRN Vitals/I & O Vital Sign - Last 24 Hours 12/26/16 12/26/16 12/26/16 12/26/16 10:50 12:08 15:00 19:51 Temp 98.5 98.2 98.4 98.5 98.2 98.4 Pulse 84 67 84 Resp 16 16 16 B/P (MAP) 116/69 (85) 120/45 (70) 143/71 (95) Pulse Ox 93 93 94 93 O2 Delivery Room Air Room Air Room Air Room Air O2 Flow Rate 2.0 12/26/16 12/26/16 12/27/16 12/27/16 20:05 23:38 03:07 07:42 Temp 97.9 97.9 99.3 97.9 97.9 99.3 Pulse 74 83 95 Resp 16 16 18 B/P (MAP) 119/71 (87) 134/64 (87) 152/74 (100) Pulse Ox 92 91 92 O2 Delivery Room Air Room Air Room Air Room Air 12/27/16 12/27/16 12/27/16 08:00 08:13 08:14 Pulse 83 B/P (MAP) 134/64 Pulse Ox 91 O2 Delivery Room Air Room Air Intake and Output 12/26/16 12/26/16 12/27/16 15:00 23:00 07:00 Intake Total 850 ml 710 ml Output Total 1750 ml 1500 ml Balance -900 ml -790 ml JUDY ARAYA MD Dec 27, 2016 09:12
[2016-12-27 10:30] VITALS: BP 128/67
[2016-12-27] MEDS ORDERED: SULF1TAB24 PO (11:43)
--- NOTE | 2016-12-27 16:23 | EKG ---
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
--- NOTE | 2016-12-27 20:47 | DS ---
DATE OF DISCHARGE: 12/27/2016 CHIEF COMPLAINT: Headache and malaise. HISTORY OF PRESENT ILLNESS: The patient is a 56-year-old insulin-dependent diabetic, who presented to the Emergency Room with the above complaint. She reported the onset of a headache earlier on the day of admission. She felt discomfort all across her forehead and in the back of her neck. She also had some malaise and just did not feel right. In the Emergency Room, she was found to be febrile and mildly tachycardic. Urine specimen showed greater than 40 wbc's and the patient was admitted for further treatment. HOSPITAL COURSE: The patient was admitted and placed on telemetry where she remained in sinus rhythm. Blood and urine cultures were done. She was started on Rocephin. The patient continued to have intermittent fevers for the first few days, but has now been afebrile for more than 24 hours. Final blood culture shows the growth of E. coli, greater than 100,000, which is mccurdy sensitive. The urine culture is still pending, but is presumed to be the same organism. The patient will be discharged to home on Bactrim to complete a 10 days total of antibiotic treatment. The patient stated that she had not taken her insulin in about one month as she did not have test strips that her insurance would pain for. Her usual insulins were resumed and she had very good control of her blood pressure with these. She is strongly advised to follow up in our office promptly and go back on her home insulins. She is given a prescription for a new glucose meter and test strips and it is hoped that the pharmacy will be able to provide her with one that is covered on her insurance. The patient's blood pressure was well controlled with her usual medication. She has COPD and does continue to smoke. Her chest x-ray at admission was without acute infiltrate. The importance of smoking cessation was discussed with her and she is considering this. She does not normally use an inhaler and did not require oxygen. FINAL DIAGNOSES: 1. Sepsis. 2. Urinary tract infection. 3. Diabetes mellitus type 2, insulin-dependent. 4. Hypertension. 5. Chronic obstructive pulmonary disease with ongoing tobaccoism. 6. Chronic back pain. DISCHARGE MEDICATIONS: Bactrim-DS 1 p.o. b.i.d. x 7 days, aspirin 325 mg daily, hydrocodone p.r.n., NovoLog insulin 12 units t.i.d. a.c., Levemir insulin 40 units at bedtime, lisinopril 10 mg daily, lovastatin 20 mg daily, metformin 850 mg b.i.d., omeprazole 20 mg daily. FOLLOWUP: Followup is with Dr. Bernstein within 2 weeks. JUDY ARAYA MD DR: ANTHONY/brenda JOB#: [id number] / [id number] [facility]
[2016-12-27] MEDS ORDERED: INSULIN DETEMIR 300 UNITS/3 ML INSULN.PEN. SQ SCH (21:00)
== END 2016-12-27 13:00 | disposition home or self-care (01) | DRG 872 ==
LOC: ER 14:28 → 6 SOUTH 17:26
PROVIDERS: ADMIT Family Medicine; ATTEND Family Medicine
DX: A41.9 Sepsis, unspecified organism (principal); N39.0 Urinary tract infection, site not specified; J44.9 Chronic obstructive pulmonary disease, unspecified; E11.9 Type 2 diabetes mellitus without complications; E78.00 Pure hypercholesterolemia, unspecified; E78.5 Hyperlipidemia, unspecified; E87.6 Hypokalemia; F17.210 Nicotine dependence, cigarettes, uncomplicated; G89.29 Other chronic pain; I10 Essential (primary) hypertension; M54.9 Dorsalgia, unspecified; Z79.4 Long term (current) use of insulin; Z86.73 Personal history of transient ischemic attack (TIA), and cerebral infarction without residual deficits; Z90.49 Acquired absence of other specified parts of digestive tract; Z79.899 Other long term (current) drug therapy; Z88.1 Allergy status to other antibiotic agents; Z79.82 Long term (current) use of aspirin; Z71.6 Tobacco abuse counseling
CPT/HCPCS: 36415; 70450; 71020; 80048; 80053; 81001; 82962; 83605; 85007; 85027; 87040; 87086; 87186; 87205; 90732; 93005; 96361; 96365; J0690; J0696; J1815; J7030; 99285-25

== ENCOUNTER 2017-04-26 13:38 | Emergency (ER) | payer MEDICARE, OTHER ==
[~2017-04-26] VITALS: Ht 165.1 cm; Wt 86.2 kg
[~2017-04-26 13:38] MED LIST changes: +HYDR-2762 PO; +LISI10TA2 PO; +LOVA20TA2 PO; +OMEP20TA8 PO; +SULF1TAB24 PO
[2017-04-26 14:20] VITALS: BP 148/87
[2017-04-26 14:43] LABS: BILIRUBIN,URINE NEGATIVE (NEG); GLUCOSE,URINE NEGATIVE (NEG); NITRITE,URINE NEGATIVE (NEG); PH,URINE 7.5; PROTEIN,URINE NEGATIVE (NEG-TRACE); UROBILINOGEN,URINE 0.2 mg/dL (0.2 mg/dL)
--- NOTE | 2017-04-26 14:44 | PHYS DOC ---
Past Medical History Past Medical History: CVA, Diabetes-Type II, High Cholesterol, Hypertension Past Surgical History: Cholecystectomy Alcohol Use: None Drug Use: None Adult General Chief Complaint Chief Complaint: BACK PAIN - NO INJURY [facility] HPI Patient is a 56 year old female presents to the emergency department stating that she has been having lower back pain for the last 2-3 days. She states that she has had a history of a bulging disc in her back. She's been taken Advil for pain and discomfort with minimal relief. Patient states she is taken hydrocodone however her primary care physician will not refill the prescription. She denies any nausea vomiting fever or chills. She denies any injury or trauma. Review of Systems Review of Systems Constitutional: Denies fever or chills [] Eyes: Denies change in visual acuity, redness, or eye pain [] HENT: Denies nasal congestion or sore throat [] Respiratory: Denies cough or shortness of breath [] Cardiovascular: No additional information not addressed in HPI [] GI: Denies abdominal pain, nausea, vomiting, bloody stools or diarrhea [] : Denies dysuria or hematuria [] Musculoskeletal: Lower back pain denies joint pain [] Integument: Denies rash or skin lesions [] Neurologic: Denies headache, focal weakness or sensory changes [] Endocrine: Denies polyuria or polydipsia [] Allergies Allergies Allergies Coded Allergies Type Severity Reaction Last Updated Verified levofloxacin Adverse Reaction Intermediate vomiting 01/04/16 Yes Physical Exam Physical Exam Constitutional: Well developed, well nourished, no acute distress, non-toxic appearance. [] HENT: Normocephalic, atraumatic, bilateral external ears normal, oropharynx moist, no oral exudates, nose normal. [] Eyes: PERRLA, EOMI, conjunctiva normal, no discharge. [] Neck: Normal range of motion, no tenderness, supple, no stridor. [] Cardiovascular:Heart rate regular rhythm, no murmur [] Lungs & Thorax: Bilateral breath sounds clear to auscultation [] Skin: Warm, dry, no erythema, no rash. [] Back: Lower back tenderness, no CVA tenderness. [] Extremities: No tenderness, no cyanosis, no clubbing, ROM intact, no edema. [] Neurologic: Alert and oriented X 3, normal motor function, normal sensory function, no focal deficits noted. [] Psychologic: Affect normal, judgement normal, mood normal. [] Current Patient Data Vital Signs Vital Signs Date Time Temp Pulse Resp B/P (MAP) Pulse Ox O2 Delivery O2 Flow Rate FiO2 04/26/17 14:20 98.0 100 16 96 Room Air 98.0 Lab Values Laboratory Tests Test 04/26/17 14:20 Urine Collection Type Unknown Urine Color Yellow Urine Clarity Clear Urine pH 7.5 Urine Specific Elida 1.015 Urine Protein Negative mg/dL (NEG-TRACE) Urine Glucose (UA) Negative mg/dL (NEG) Urine Ketones (Stick) Negative mg/dL (NEG) Urine Blood Moderate (NEG) Urine Nitrite Negative (NEG) Urine Bilirubin Negative (NEG) Urine Urobilinogen Dipstick 0.2 mg/dL (0.2 mg/dL) Urine Leukocyte Esterase Moderate (NEG) Urine RBC >40 /HPF (0-2) Urine WBC 11-20 /HPF (0-4) Urine Squamous Epithelial Cells Many /LPF Urine Bacteria Many /HPF (0-FEW) Urine Mucus Mod /LPF EKG EKG [] Radiology/Procedures Radiology/Procedures [] Course & Med Decision Making Course & Med Decision Making Pertinent Labs and Imaging studies reviewed. (See chart for details) Urine was positive for leukocyte Estrace as well as many bacteria. Patient will be placed on Macrobid one tablet twice a day for the next 7 days. Recommended plenty of fluids such as water and cranberry juice. Recommended to avoid cranberry juice cocktail, carbonate beverages, citrus fruits, alcohol, caffeine as these are considered irritants to the bladder. Patient will be discharged home in stable condition signs and symptoms to return back to the emergency department as been provided. All questions and concerns been answered at patient 's bedside. [] Dragon Disclaimer Dragon Disclaimer This electronic medical record was generated, in whole or in part, using a voice recognition dictation system. Departure Departure Impression: Primary Impression: Urinary tract infection Disposition: 01 HOME, SELF-CARE Condition: STABLE Referrals: Medhat DUMONT MD (PCP) Patient Instructions: Urinary Tract Infection, [id number] Additional Instructions: Activity as tolerated. Medications as prescribed. Drink plenty of fluids such as water and cranberry juice. Avoid cranberry juice cocktail, carbonated beverages, citrus fruits, caffeine, alcohol as these are considered irritants to the bladder. Follow-up to primary care physician next 7-10 days to make sure you cleared the urinary tract infection. Return back to emergency prior signs and symptoms of become worse. Scripts Nitrofurantoin Monohyd/M-Cryst (MACROBID 100 MG CAPSULE) 100 Mg Capsule 1 CAP PO BID, #14 CAP Prov: FRANCISCO YO APRN 04/26/17 Problem Qualifiers Primary Impression: Urinary tract infection Urinary tract infection type: site unspecified Hematuria presence: without hematuria Qualified Codes: N39.0 - Urinary tract infection, site not specified FRANCISCO OY APRN Apr 26, 2017 14:44
[2017-04-26 14:50] LABS: BACTERIA,URINE MANY /HPF (0-FEW); RBC,URINE >40 /HPF (0-2); SQUAMOUS EPITHELIAL CELL,UR MANY /LPF
[2017-04-26] MEDS ORDERED: NITR100C62 PO (14:56)
== END 2017-04-26 15:07 | disposition home or self-care (01) ==
LOC: ER 13:38
DX: N39.0 Urinary tract infection, site not specified (principal); I10 Essential (primary) hypertension; E78.00 Pure hypercholesterolemia, unspecified; E11.9 Type 2 diabetes mellitus without complications; Z86.73 Personal history of transient ischemic attack (TIA), and cerebral infarction without residual deficits; Z90.49 Acquired absence of other specified parts of digestive tract; Z88.1 Allergy status to other antibiotic agents
CPT/HCPCS: 81001; 87086; 99284

== ENCOUNTER → 2017-05-14 | Outpatient (CLI) | payer MEDICARE, OTHER ==
[2017-04-26 14:20] VITALS: BP 148/87
[~2017-05-14] MED LIST changes: +NITR100C62 PO
--- NOTE | 2017-05-14 12:12 | KCIC ---
Chest radiograph 2 views 05/14/2017 CLINICAL INDICATION: Abnormal chest radiograph. COMPARISON: Chest radiograph 12/24/2016, the report is not available at the time of dictation. FINDINGS: Cardiac and mediastinal silhouettes are within normal limits. No pleural effusion, pneumothorax or focal consolidation. IMPRESSION: No acute cardiopulmonary abnormality. Electronically signed by: Sherif Hayward MD (05/14/2017 12:09 PM) [id number]
== END | disposition home or self-care (01) ==
LOC: KCIC 09:00
PROVIDERS: ATTEND Family Medicine
DX: R93.8 Abnormal findings on diagnostic imaging of other specified body structures (principal)
CPT/HCPCS: 71020

== ENCOUNTER → 2017-11-08 | Outpatient (CLI) | payer MEDICARE, OTHER | END | disposition home or self-care (01) | LOC: KCIC MRI 12:17 | DX: I65.22 Occlusion and stenosis of left carotid artery (principal); I10 Essential (primary) hypertension; E11.9 Type 2 diabetes mellitus without complications; Z86.73 Personal history of transient ischemic attack (TIA), and cerebral infarction without residual deficits; Z87.891 Personal history of nicotine dependence | CPT/HCPCS: 70544; 93880 ==

== ENCOUNTER → 2019-04-03 | Outpatient (CLI) | payer MEDICARE ==
[~2019-04-03] MED LIST changes: -HYDR-2762 PO; +HYDR-2765 PO; -METF850T2 PO; +METF850T8 PO
--- NOTE | 2019-04-04 10:31 | RAD ---
DATE: 04/03/2019 9:22 AM EXAM: MAMMO MARY SCREENING BILATERAL HISTORY: routine screening evaluation. COMPARISON: 04/03/19 Bilateral CC and MLO views of the breasts were performed. Bilateral breast tomosynthesis was performed in CC and MLO projections. This study was interpreted with the benefit of Computerized Aided Detection (CAD). FINDINGS: Breast Density: SCATTERED The breast parenchyma shows scattered fibroglandular densities. Breast parenchyma level B Benign calcifications are present. Within the superior left breast approximately 4 cm from nipple there is a well-circumscribed mass. No suspicious microcalcification or architectural distortion within the left breast. No suspicious masses, microcalcifications or architectural distortion is present to suggest malignancy in the right breast. The visualized axillae are unremarkable. IMPRESSION: Left breast mass, findings for which additional imaging is advised. BI-RADS CATEGORY: 0 INCOMPLETE: NEEDS ADDITIONAL IMAGING EVALUATION AND/OR PRIOR MAMMOGRAMS FOR COMPARISON. RECOMMENDED FOLLOW-UP: ADD ADDITIONAL IMAGING testicular ultrasound the left breast is recommended. PQRS compliance statement: Patient information was entered into a reminder system with a target due date for the next mammogram. Mammography is a sensitive method for finding small breast cancers, but it does not detect them all and is not a substitute for careful clinical examination. A negative mammogram does not negate a clinically suspicious finding and should not result in delay in biopsying a clinically suspicious abnormality. "Our facility is accredited by the [employer] Mammography [employer]."
== END | disposition home or self-care (01) ==
LOC: MAMMO 08:50
PROVIDERS: ATTEND Family Medicine
DX: Z12.31 Encounter for screening mammogram for malignant neoplasm of breast (principal); N64.89 Other specified disorders of breast; N63.20 Unspecified lump in the left breast, unspecified quadrant
CPT/HCPCS: 77063; 77067

== ENCOUNTER → 2019-05-13 | Outpatient (CLI) | payer MEDICARE, OTHER ==
--- NOTE | 2019-05-13 11:27 | RAD ---
DATE: 05/13/2019 10:14 AM EXAM: DIGITAL DIAGNOSTIC LT, BREAST LEFT HISTORY: Call back left breast mass. COMPARISON: April 03, 2019. Spot CC and MLO compression view of the left breast. Targeted ultrasound of the left breast. This study was interpreted with the benefit of Computerized Aided Detection (CAD). FINDINGS: Breast Density: SCATTERED The breast parenchyma shows scattered fibroglandular densities. Breast parenchyma level B Left breast mammogram: Well-circumscribed mass left breast persistent on compression views. Left breast ultrasound: Smoothly marginated cyst within the left breast 12:00 position 4.5 cm from the nipple measures 0.5 x 0.4 x 0.6 cm. There is slight internal echogenicity. Posterior acoustic enhancement. Small left axillary benign-appearing lymph nodes. IMPRESSION: Slightly complicated left breast cyst corresponding with mammographic finding. BI-RADS CATEGORY: 2 BENIGN FINDING(S) RECOMMENDED FOLLOW-UP: 12M 12 MONTH FOLLOW-UP Annual screening mammography is recommended, unless clinically indicated sooner based on symptoms or change in physical exam. PQRS compliance statement: Patient information was entered into a reminder system with a target due date one year for the next mammogram. Mammography is a sensitive method for finding small breast cancers, but it does not detect them all and is not a substitute for careful clinical examination. A negative mammogram does not negate a clinically suspicious finding and should not result in delay in biopsying a clinically suspicious abnormality. "Our facility is accredited by the [employer] Mammography Program."
== END | disposition home or self-care (01) ==
LOC: MAMMO 10:10
PROVIDERS: ATTEND Family Medicine
DX: N60.02 Solitary cyst of left breast (principal)
CPT/HCPCS: 76641; 77065